=== PATIENT | female | born 1940 | race Caucasian/White ===

== ENCOUNTER 2017-03-23 11:46 | Emergency (ER) | payer MEDICARE ==
[~2017-03-23] VITALS: Ht 162.6 cm; Wt 80.0 kg
[~2017-03-23 11:46] MED LIST: AMITRIPTYLIN25 MG PO; AMITRIPTYLIN50 MG PO; AMLODIPINE PO; AMOXICILLIN875 MG OR; ASPIRIN EC81 MG PO; AVELOX400 MG PO; BACTRIM DS1 TAB PO; BAYER LOW81 MG OR; BL ADULT ASA81 MG PO; CARVEDILOL12.5 MG PO; CARVEDILOL3.125 MG PO; CIPRO500 MG OR; CIPROFLOXACN500 MG PO; CLONIDINE0.1 MG PO; DIGOXIN0.25 MG OR; DONEPEZIL5 MG PO; DULERA1 AE1 IN; DUONEB IN; ELAVIL25 MG OR; FLAGYL500 MG OR; IMODIUM2 MG PO; INDOCIN SR75 MG OR; K-DUR/KLOR-CON20 MEQ PO; LASIX 20 MG20 MG/TAB PO; LASIX40 MG OR; LIPITOR20 MG OR; LISINOPRIL20 MG PO; LORTAB 5 PO; LORTAB 5/3255 MG PO; LORTAB/VICODIN1 TAB OR; LORTAB5 OR; LORTAB5 PO; LOSARTAN POT50 MG PO; MEDDOSEPAK OR; METOPROL TAR25 MG OR; METOPROL TAR50 MG OR; METOPROLOL50 MG OR; METRONIDAZOL500 MG PO; MUCINEX600 MG OR; NEXIUM40 M1 OR; NITROFURANTN100 MG PO; NITROFURANTO100 MG PO; NYAMYC100000 MG PO; OMEPRAZOLE20 MG PO; OXYBUTYNIN5 M1 PO; PENICILLN VK500 MG PO; PEPCID20 MG OR; PLAVIX75 MG PO; PREDNISONE10 MG PO; PRILOSEC20 MG/CAP PO; PROZAC20 MG PO; ROBITUSSIN AC10 ML PO; SIMVASTATIN40 MG PO; SYMBICORT1 AE1 IN; TYLENOL325 MG OR; ULTRAM50 M1 OR; VERAPAMIL80 MG OR; ZESTRIL20 MG OR; ZPAK PO; [UNRECOGNIZED DRUG - OTHER] PO
[2017-03-23 12:57] LABS: HEMATOCRIT 36.6 % (37.0-47.0); HEMOGLOBIN 12.6 g/dl (12.0-16.0); IMMATURE GRANULOCYTES 0.5 % (0.0-1.0); MEAN CELL VOLUME 91.5 fL CALC (80.0-100.0); MEAN CORPUSCULAR HGB 31.5 pG CALC (26.0-32.0); MEAN CORPUSCULAR HGB CONC 34.4 g/L CALC (32.0-36.0); NEUT# 5.67 thou/uL (2.00-7.15); RED CELL DISTRI WIDTH 12.7 % (11.5-15.5)
[2017-03-23 13:00] LABS: ALBUMIN 4.3 g/dL (3.2-5.0); ALKALINE PHOSPHATASE 75 u/l (38-126); ANION GAP 18 (6-22 (CALC)); BILIRUBIN, TOTAL 0.5 mg/dL (0.0-1.4); BUN 8 mg/dL (8-23); BUN/CREATININE RATIO 7 (12-20 (CALC)); CALCIUM 9.6 mg/dL (8.4-10.2); CARBON DIOXIDE 19 mmol/l (22-30); CHLORIDE 97 mmol/l (95-108); CREATININE 1.1 mg/dL (0.5-1.0); GFR 48 ML/MIN (>=60 (CALC)); GFR FOR AFR.AMER. 58 ML/MIN (>=60 (CALC)); GLUCOSE 102 mg/dL (82-115); POTASSIUM 4.1 mmol/l (3.5-5.1); SGOT/AST 22 u/l (9-36); SGPT/ALT 22 u/l (11-66); SODIUM 130 mmol/l (137-146); TOTAL PROTEIN 7.6 g/dL (6.3-8.2)
[2017-03-23] MEDS ORDERED: MEDDOSEPAK PO (14:05)
[2017-03-23] MEDS ORDERED: ZPAK PO (14:05)
[2017-03-23 14:08] VITALS: BP 153/79
== END 2017-03-23 14:19 | disposition home or self-care (01) ==
LOC: ED 11:46
PROVIDERS: Emergency Medicine
DX: J44.1 Chronic obstructive pulmonary disease with (acute) exacerbation (principal); R06.02 Shortness of breath; I10 Essential (primary) hypertension; R05 Cough

== ENCOUNTER 2017-05-20 09:51 | Emergency (ER) | payer MEDICARE ==
[~2017-05-20] VITALS: Ht 162.6 cm; Wt 87.7 kg
[~2017-05-20 09:51] MED LIST changes: -ASPIRIN EC81 MG PO; +BAYER ASPIRIN E81 MG PO; +MEDDOSEPAK PO
[2017-05-20] MEDS ORDERED: WELLBUTRIN SR150 MG PO (10:18)
[2017-05-20] MEDS ORDERED: CARVEDILOL12.5 MG PO (10:19)
[2017-05-20] MEDS ORDERED: COLACE100 MG PO (10:19)
[2017-05-20] MEDS ORDERED: APAP/HYDRO325 MG/10 PO (10:37)
[2017-05-20] MEDS ORDERED: ULTRAM50 M1 PO (11:10)
[2017-05-20 11:30] VITALS: BP 140/84
== END 2017-05-20 11:30 | disposition home or self-care (01) ==
LOC: ED 09:51
DX: S40.012A Contusion of left shoulder, initial encounter (principal); I10 Essential (primary) hypertension; J44.9 Chronic obstructive pulmonary disease, unspecified; E78.5 Hyperlipidemia, unspecified; M19.90 Unspecified osteoarthritis, unspecified site; W01.0XXA Fall on same level from slipping, tripping and stumbling without subsequent striking against object, initial encounter; Y92.002 Bathroom of unspecified non-institutional (private) residence as the place of occurrence of the external cause

== ENCOUNTER → 2017-12-14 | Outpatient (REF) ==
[~2017-12-14] MED LIST changes: +APAP/HYDRO325 MG/10 PO; +COLACE100 MG PO; +ULTRAM50 M1 PO; +WELLBUTRIN SR150 MG PO
== END | disposition home or self-care (01) | DRG 696 ==
LOC: LABSPEC 12:10
PROVIDERS: ATTEND Nurse Practitioner Adult Health
DX: R30.0 Dysuria (principal)

== ENCOUNTER 2017-12-24 15:30 | Emergency (ER) | payer MEDICARE ==
[~2017-12-24] VITALS: Ht 162.6 cm; Wt 100.0 kg
[2017-12-24 16:34] LABS: HEMATOCRIT 36.6 % (37.0-47.0); HEMOGLOBIN 12.3 g/dl (12.0-16.0); IMMATURE GRANULOCYTES 0.3 % (0.0-5.0); MEAN CELL VOLUME 88.8 fL CALC (80.0-100.0); MEAN CORPUSCULAR HGB 29.9 pG CALC (26.0-32.0); MEAN CORPUSCULAR HGB CONC 33.6 g/L CALC (32.0-36.0); NEUT# 4.19 thou/uL (2.00-7.15); RED BLOOD COUNT 4.12 mill/uL (4.20-5.60); RED CELL DISTRI WIDTH 13.1 % (11.5-15.5)
[2017-12-24 16:39] VITALS: BP 171/82
[2017-12-24 17:07] LABS: CREATININE 1.1 mg/dL (0.5-1.0); POTASSIUM 4.9 mmol/l (3.5-5.1)
== END 2017-12-24 20:01 | disposition home or self-care (01) ==
LOC: ED 15:30
PROVIDERS: Family Medicine
DX: S20.212A Contusion of left front wall of thorax, initial encounter (principal); S51.811A Laceration without foreign body of right forearm, initial encounter; S81.812A Laceration without foreign body, left lower leg, initial encounter; I10 Essential (primary) hypertension; J44.9 Chronic obstructive pulmonary disease, unspecified; E78.5 Hyperlipidemia, unspecified; M19.90 Unspecified osteoarthritis, unspecified site; W10.9XXA Fall (on) (from) unspecified stairs and steps, initial encounter; Y92.007 Garden or yard of unspecified non-institutional (private) residence as the place of occurrence of the external cause; Z95.1 Presence of aortocoronary bypass graft
CPT/HCPCS: Q9967

== ENCOUNTER 2020-10-04 07:35 | Day surgery (SDC) | payer MEDICARE ==
[~2020-10-04] VITALS: Ht 162.6 cm; Wt 73.5 kg
[~2020-10-04 07:35] MED LIST changes: +ACYCLOVIR200 MG PO; +ALBUTEROL SUL0.083 % IN; +AMOX/K CLAV875 M1 PO; +ARICEPT10 MG PO; +ASPIRIN81 MG PO; +COREG6.25 MG PO; +DITROPAN5 MG/TA1 PO; +ESCITALOPRAM OX10 MG PO; +FLORASTOR250 M1 PO; +HYDROCODONE/ACE1 TAB PO; +NAMENDA10 MG PO; +PROAIR HFA108 MCG/AC IN; +SIMVASTATIN20 MG PO; +VENTOLIN HFA IN; +WELLBUTRIN XL300 MG PO; +ZOFRAN4 MG/TAB PO
[2020-10-04 09:55] VITALS: BP 151/70
--- NOTE | 2020-10-04 12:33 | NUR ---
PER PHYSICIAN, PATIENT NOTIFIED OF FINDINGS AND RECOMMENDATIONS WRITTEN PER COLONOSCOPY REPORT. PATIENT AGREED WITH INFORMATION GIVEN, STATES DOING WELL, AT HOME RESTING, VERBALIZED NO CONCERNS AT TIME OF CALL. REPORT FORWARDED TO PRIMARY CARE PROVIDER FOR CONTINUITY OF CARE.
== END 2020-10-04 09:46 | disposition home or self-care (01) ==
LOC: ENDO 07:35 → PO 09:25 → ENDO 09:46 → ORM 11:00 → PO 11:15 → ORM 11:15
PROVIDERS: ATTEND Surgery
PROC: 0DJD8ZZ Inspection of Lower Intestinal Tract, Via Natural or Artificial Opening Endoscopic (ICD-10-PCS; principal; 2020-10-04)
PROC: 0DJ08ZZ Inspection of Upper Intestinal Tract, Via Natural or Artificial Opening Endoscopic (ICD-10-PCS; 2020-10-04)
DX: D64.9 Anemia, unspecified (principal); K64.8 Other hemorrhoids; K44.9 Diaphragmatic hernia without obstruction or gangrene; I10 Essential (primary) hypertension; E78.00 Pure hypercholesterolemia, unspecified; Z95.1 Presence of aortocoronary bypass graft

== ENCOUNTER 2021-03-27 14:38 | Observation (INO) | payer MEDICARE ==
[~2021-03-27] VITALS: Ht 162.6 cm; Wt 74.0 kg
[2021-03-27 17:08] LABS: ALBUMIN 3.9 g/dL (3.2-5.0); BILIRUBIN, TOTAL 0.4 mg/dL (0.0-1.4); CREATININE 1.3 mg/dL (0.5-1.0); POTASSIUM 4.4 mmol/l (3.5-5.1); TOTAL PROTEIN 6.8 g/dL (6.3-8.2)
[2021-03-27 17:27] LABS: URINE BILIRUBIN - DIPSTICK NEGATIVE (NEGATIVE); URINE BLOOD DIPSTICK SMALL (NEGATIVE); URINE COLOR YELLOW; URINE GLUCOSE - DIPSTICK NEGATIVE (NEGATIVE); URINE KETONE NEGATIVE (NEGATIVE); URINE LEUK ESTERASE NEGATIVE (NEGATIVE); URINE PROTEIN - DIPSTICK TRACE mg/dL (NEG-TRACE); URINE UROBILINOGEN - DIPSTICK 0.2 E.U./dL (0.2)
[2021-03-27 17:34] LABS: URINE NITRITE - DIPSTICK NEGATIVE (Negative); URINE SQUAMOUS EPITHELIAL CELL FEW EPI/hpf (0-FEW); URINE WBC 0-2 WBC/hpf (0-5)
[2021-03-27 17:49] LABS: HEMOGLOBIN 10.6 g/dl (12.0-16.0); IMMATURE GRANULOCYTES 0.3 % (0.0-5.0); MEAN CELL VOLUME 97.6 fL CALC (80.0-100.0); MEAN CORPUSCULAR HGB 31.4 pG CALC (26.0-32.0); MEAN CORPUSCULAR HGB CONC 32.1 g/dL CAL (32.0-36.0); NEUT# 2.31 thou/uL (2.00-7.15); RED BLOOD COUNT 3.38 mill/uL (4.20-5.60); RED CELL DISTRI WIDTH 12.6 % (11.5-15.5)
[2021-03-27 21:03] LABS: C-REACTIVE PROTEIN 0.6 mg/dL (0-0.9); CHOLESTEROL HDL RATIO 2.9 (<4.4 (CALC))
[2021-03-27 21:30] VITALS: BP 141/69
[2021-03-28] VITALS: BP 135/69
[2021-03-28 04:00] VITALS: BP 144/68
[2021-03-28 05:54] LABS: HEMATOCRIT 34.8 % (37.0-47.0); HEMOGLOBIN 11.7 g/dl (12.0-16.0); MEAN CELL VOLUME 96.1 fL CALC (80.0-100.0); MEAN CORPUSCULAR HGB 32.3 pG CALC (26.0-32.0); MEAN CORPUSCULAR HGB CONC 33.6 g/dL CAL (32.0-36.0); RED BLOOD COUNT 3.62 mill/uL (4.20-5.60); RED CELL DISTRI WIDTH 12.5 % (11.5-15.5)
[2021-03-28 06:03] LABS: CREATININE 1.2 mg/dL (0.5-1.0); MAGNESIUM 1.7 mg/dL (1.6-2.3); POTASSIUM 4.5 mmol/l (3.5-5.1)
[2021-03-28 08:06] LABS: CHOLESTEROL HDL RATIO 2.6 (<4.4 (CALC))
[2021-03-28 10:46] VITALS: BP 147/71
[2021-03-28] MEDS ORDERED: MEMANTINE HYDRO10 MG PO (11:55)
[2021-03-28] MEDS ORDERED: OMEPRAZOLE20 MG PO (11:56)
[2021-03-28] MEDS ORDERED: FERROUS SULF325 M2 PO (11:57)
[2021-03-28] MEDS ORDERED: COREG12.5 MG PO (11:57)
[2021-03-28] MEDS ORDERED: MECLIZINE25 MG PO (11:58)
[2021-03-28 16:00] VITALS: BP 138/67
[2021-03-28 19:00] VITALS: BP 130/72
[2021-03-29] VITALS: BP 134/71
[2021-03-29 04:00] VITALS: BP 128/74
[2021-03-29 06:10] LABS: HEMATOCRIT 35.5 % (37.0-47.0); HEMOGLOBIN 11.8 g/dl (12.0-16.0); MEAN CELL VOLUME 95.9 fL CALC (80.0-100.0); MEAN CORPUSCULAR HGB 31.9 pG CALC (26.0-32.0); MEAN CORPUSCULAR HGB CONC 33.2 g/dL CAL (32.0-36.0); RED BLOOD COUNT 3.7 mill/uL (4.20-5.60); RED CELL DISTRI WIDTH 12.6 % (11.5-15.5)
[2021-03-29 06:26] LABS: CREATININE 1.4 mg/dL (0.5-1.0); MAGNESIUM 1.8 mg/dL (1.6-2.3); POTASSIUM 4.3 mmol/l (3.5-5.1)
[2021-03-29 07:23] VITALS: BP 146/68
[2021-03-29 08:29] VITALS: BP 153/65
[2021-03-29 12:20] VITALS: BP 148/68
== END 2021-03-29 16:01 | disposition home or self-care (01) ==
LOC: ED 14:38 → ED-I 19:25 → ED 19:46 → MS2 19:47
PROVIDERS: Family Medicine; Nurse Practitioner; ADMIT Hospitalist; ATTEND Hospitalist
DX: G45.9 Transient cerebral ischemic attack, unspecified (principal); U07.1 COVID-19; E87.1 Hypo-osmolality and hyponatremia; I12.9 Hypertensive chronic kidney disease with stage 1 through stage 4 chronic kidney disease, or unspecified chronic kidney disease; N18.30 Chronic kidney disease, stage 3 unspecified; J43.9 Emphysema, unspecified; I25.10 Atherosclerotic heart disease of native coronary artery without angina pectoris; E78.5 Hyperlipidemia, unspecified; K21.9 Gastro-esophageal reflux disease without esophagitis; M25.532 Pain in left wrist; M79.642 Pain in left hand; M25.521 Pain in right elbow; M54.2 Cervicalgia; F03.90 Unspecified dementia, unspecified severity, without behavioral disturbance, psychotic disturbance, mood disturbance, and anxiety; Z91.81 History of falling; Z95.1 Presence of aortocoronary bypass graft; Z87.891 Personal history of nicotine dependence
CPT/HCPCS: G0378

== ENCOUNTER 2021-06-09 19:31 | Inpatient (IN) | payer MEDICARE ==
[~2021-06-09] VITALS: Ht 162.6 cm; Wt 68.0 kg
[2021-06-09] VITALS (7 sets, daily range): BP systolic 158–179; BP diastolic 82–92
[~2021-06-09 19:31] MED LIST changes: +BUPROPN HCL300 MG PO; +COREG12.5 MG PO; +FERROUS SULF325 M2 PO; +MECLIZINE25 MG PO; +MEMANTINE HYDRO10 MG PO; -WELLBUTRIN XL300 MG PO
--- NOTE | 2021-06-09 19:32 | NUR ---
PT ARRIVED VIA EMS, IN ROOM ON MONITOR, PROVIDER AWARE.
[2021-06-09 20:32] LABS: HEMATOCRIT 31.1 % (37.0-47.0); HEMOGLOBIN 10.5 g/dl (12.0-16.0); IMMATURE GRANULOCYTES 0.8 % (0.0-5.0); MEAN CELL VOLUME 96.9 fL CALC (80.0-100.0); MEAN CORPUSCULAR HGB 32.7 pG CALC (26.0-32.0); MEAN CORPUSCULAR HGB CONC 33.8 g/dL CAL (32.0-36.0); NEUT# 11.46 thou/uL (2.00-7.15); RED BLOOD COUNT 3.21 mill/uL (4.20-5.60); RED CELL DISTRI WIDTH 13.2 % (11.5-15.5)
[2021-06-09 20:40] LABS: ALBUMIN 3.7 g/dL (3.2-5.0); CREATININE 1.2 mg/dL (0.5-1.0); POTASSIUM 3.6 mmol/l (3.5-5.1)
[2021-06-09 20:49] LABS: BILIRUBIN, TOTAL 1.2 mg/dL (0.0-1.4)
--- NOTE | 2021-06-09 22:08 | NUR ---
PT BACK FROM CT, PUREWICK IN PLACE. CALL LIGHT IN REACH.
--- NOTE | 2021-06-09 22:45 | NUR ---
BEDSIDE REPORT RECEIVED IN ER. PT RESTIN COMFORTALY ON STRETCHER, ER NURSE PERFORMING EKG.
--- NOTE | 2021-06-10 | NUR ---
MARTELL BROUGHT ONTO FLOOR BY WRITTER VIA STRETCHER, TRANSFERREED TO BED WITH ASSISST X2.
--- NOTE | 2021-06-10 | NUR ---
ASSESMENT COMPLETED AT THIS TIME.
--- NOTE | 2021-06-10 01:00 | NUR ---
PATIENT UP AND WALKING TO THE BATHROOM.
--- NOTE | 2021-06-10 02:38 | NUR ---
PATIENT FINALLY SLEEPING SOUNDLY, REPLACED TELEMETRY, READING SR 92. CALL LIGHT WITHIN REACH.
[2021-06-10 03:46] VITALS: BP 138/66
--- NOTE | 2021-06-10 05:00 | NUR ---
PATIENT REFUSING TO KEEP TELEMETRY ON.
--- NOTE | 2021-06-10 05:30 | NUR ---
KYAW ATTEMPTED TO REPLACE TELEMETRY ON PATIENT. PT STATED SHE DID NOT WANT THAT BACK ON HER AND TO "GET AWAY FROM HER"
[2021-06-10 05:50] LABS: HEMATOCRIT 34.9 % (37.0-47.0); HEMOGLOBIN 11.7 g/dl (12.0-16.0); MEAN CELL VOLUME 96.4 fL CALC (80.0-100.0); MEAN CORPUSCULAR HGB 32.3 pG CALC (26.0-32.0); MEAN CORPUSCULAR HGB CONC 33.5 g/dL CAL (32.0-36.0); RED BLOOD COUNT 3.62 mill/uL (4.20-5.60)
[2021-06-10 06:07] LABS: CREATININE 1.2 mg/dL (0.5-1.0); MAGNESIUM 1.9 mg/dL (1.6-2.3); POTASSIUM 3.6 mmol/l (3.5-5.1)
[2021-06-10 07:36] VITALS: BP 138/63
--- NOTE | 2021-06-10 07:36 | NUR ---
PT SLEEPING IN SEMI FOWLERS POSITION. AWAKENS TO SPEECH. PT IS A/OX2 WITH SOME CONFUSION. ASSESSMENT AND VITALS COMPLETED. RESPIRATIONS EVEN AND UNLABORED ON ROOM AIR. LUNG SOUNDS CLEAR. HEART RHYTHM NORMAL WITH TELE IN PLACE. BOWEL SOUNDS ACTIVE. #20G EMS RW FLUSHED, SITE PATENT. SKIN INTACT. PT DENIES OF ANY PAINS. CONTACT PRECAUTIONS IN PLACE FOR POSSIBLE BED BUG INFESTATION, NONE VISIBLE. PT DENIES OF ANY ADDITIONAL NEEDS. ALL SAFTEY PRECAUTIONS ARE IN PLACE WITH CALL LIGHT IN REACH.
--- NOTE | 2021-06-10 07:38 | NUR ---
Patient is screened for intervention of physical medicine service and no needs are identified at this time
[2021-06-10 08:49] LABS: URINE BILIRUBIN - DIPSTICK NEGATIVE (NEGATIVE); URINE BLOOD DIPSTICK SMALL (NEGATIVE); URINE COLOR YELLOW; URINE GLUCOSE - DIPSTICK NEGATIVE (NEGATIVE); URINE KETONE TRACE mg/dL (NEGATIVE); URINE LEUK ESTERASE NEGATIVE (NEGATIVE); URINE PROTEIN - DIPSTICK 30 mg/dL (NEG-TRACE); URINE SPECIFIC GRAVITY 1.015
[2021-06-10 09:06] LABS: URINE NITRITE - DIPSTICK NEGATIVE (Negative); URINE RBC 0-2 RBC/hpf (0-5); URINE SQUAMOUS EPITHELIAL CELL FEW EPI/hpf (0-FEW)
--- NOTE | 2021-06-10 10:00 | NUR ---
DR CRABTREE AT BEDSIDE
[2021-06-10 10:22] VITALS: BP 133/67
--- NOTE | 2021-06-10 12:10 | NUR ---
PT SLEEPING IN LOW FOLWERS POSITION. RESPIRATIONS EVEN AND UNLABORED ON ROOM AIR. #20G RW REMAINS IN PLACE. TELE MONITORING IN PLACE. NO SIGNS OF ANY PAINS OR DISCOMFORTS. ALL SAFTEY PRECAUTIONS IN PLACE WITH CALL LIGHT IN REACH.
[2021-06-10 15:12] VITALS: BP 142/72
--- NOTE | 2021-06-10 16:05 | NUR ---
PT RESTING IN SEMI FOWLERS POSITION. PT ASSISTED TO BATHRROOM AND BACK TO BED. STEADY GAIT NOTED. #20G RW REMAINS IN PLACE. TELE MONITORING IN PLACE. PT DENIES OF ANY NEEDS. ALL SAFTEY PRECAUTIONS IN PLACE WITH CALL LIGHT IN REACH
--- NOTE | 2021-06-10 18:50 | NUR ---
RECEIVED REPORT FROM JANINA HEARN.
[2021-06-10 19:11] VITALS: BP 124/58
--- NOTE | 2021-06-10 20:00 | NUR ---
PT SITTING IN BED; A&O X2. EVEN AND UNLABORED RESPIRATIONS; DIMINISHED LUNG SOUNDS UPON AUSCULTATION. TELEMETRY IN PLACE. ACTIVE BOWEL SOUNDS X4 QUADRANTS. IV SITE HEALTHY AND PATENT. NO DISTRESS NOTED. PT DENIES PAIN AT THE MOMENT. PT ASSISTED TO RESTOOM, PT BACK IN BED. BED ALARM AND SAFETY PRECAUTIONS IN PLACE. CALL LIGHT WITHIN REACH.
--- NOTE | 2021-06-10 20:25 | NUR ---
PT C/O HEADACHE PAIN LEVEL 8/10; ADMINISTERED PAIN MEDICATION PER EMAR. BED ALARM AND SAFETY PRECAUTIONS IN PLACE.
[2021-06-11] VITALS (7 sets, daily range): BP systolic 112–151; BP diastolic 57–92
--- NOTE | 2021-06-11 00:45 | NUR ---
PT ASSISTED TO RESTROOM, PT BACK IN BED. ADMINISTERED SCHEDULED MEDICATION. BED ALARM AND SAFETY PRECAUTIONS IN PLACE. CALL LIGHT WITHIN REACH.
--- NOTE | 2021-06-11 04:00 | NUR ---
PT SLEEPING. NO DISTRESS OR PAIN NOTED. BED ALARM AND SAFETY PRECAUTIONS IN PLACE. CALL LIGHT WITHIN REACH.
[2021-06-11 05:46] LABS: HEMATOCRIT 33.7 % (37.0-47.0); HEMOGLOBIN 11.5 g/dl (12.0-16.0); MEAN CELL VOLUME 95.7 fL CALC (80.0-100.0); MEAN CORPUSCULAR HGB 32.7 pG CALC (26.0-32.0); MEAN CORPUSCULAR HGB CONC 34.1 g/dL CAL (32.0-36.0); RED BLOOD COUNT 3.52 mill/uL (4.20-5.60); RED CELL DISTRI WIDTH 13.2 % (11.5-15.5)
[2021-06-11 06:18] LABS: CREATININE 1.6 mg/dL (0.5-1.0); MAGNESIUM 2.1 mg/dL (1.6-2.3)
[2021-06-11 06:20] LABS: POTASSIUM 3.8 mmol/l (3.5-5.1)
--- NOTE | 2021-06-11 07:00 | NUR ---
RECIEVED REPORT FROM JANINA PURI
--- NOTE | 2021-06-11 08:10 | NUR ---
PT RESTING IN SEMI FOWLERS POSITION. PT A/OX3. ASSESSMENT COMPLETED. RESPIRATIONS EVEN AND UNLABORED. LUNG SOUNDS CLEAR. HEART RHYTHM NORMAL WITH TELE IN PLACE. BOWEL SOUNDS ACTIVE. #22G LAC FLUSHED, SITE PATENT. SKIN INTACT. PT C/O OF 6/10 HEAD ACH, TYLENOL TO BE GIVEN. PT DENIES OF ANY ADDITIONAL NEEDS. ALL SAFTEY PRECAUTIONS IN PLACE WITH CALL LIGHT IN REACH
--- NOTE | 2021-06-11 08:10 | NUR ---
PT RESTING IN SEMI FOWLERS POSITION. PT A/OX2. ASSESSMENT COMPLETED. RESPIRATIONS EVEN AND UNLABORED. LUNG SOUNDS CLEAR. HEART RHYTHM NORMAL WITH TELE IN PLACE. BOWEL SOUNDS ACTIVE. #22G LAC FLUSHED, SITE PATENT. SKIN INTACT. PT C/O OF 6/10 HEAD ACH, TYLENOL TO BE GIVEN. PT DENIES OF ANY ADDITIONAL NEEDS. ALL SAFTEY PRECAUTIONS IN PLACE WITH CALL LIGHT IN REACH WITH BED ALARM ACTIVE
--- NOTE | 2021-06-11 11:00 | NUR ---
CRITICAL PROCAL OF 0.448 FROM [facility] IN LAB
--- NOTE | 2021-06-11 11:45 | NUR ---
SPEECH NOTE: The patient had screening request received today. The patient has conditions reported in medical record including: CABG, COPD exacerbation, GERD, Dementia, GI Bleed, 06-09-21 CT chest per MD reports scattered multi-focal infiltrates bilaterally and marked pulmonary emphysema. 06-11-21 CXR per MD reports of modest improvement in the congestive heart failure. Nurse aide today reports to the INFORMATION TECHNOLOGY ARCHITECT of the patient having coughing in general today, not specific to meals. The patient has some missing dentition. The patient denies having cough and choke with meals. She denies that foods or medication get stuck in her throat. She does report that she feels increased retention of secretions in her throat. The patient denies having trouble swallowing. Based on the available information, the patient would benefit from a Clinical Bedside Swallowing Evaluation at discretion of MD and medical team.
--- NOTE | 2021-06-11 12:35 | NUR ---
PT SITTING UP IN RECYLINER WITH GRANDDAUGHTER AT BEDSIDE. RESPIRATIONS EVEN AND UNLABORED ON ROOM AIR. #22G LAC INFUSING WITH IVF PER ORDER, SITE PATENT. TELE MONITORING IN PLACE. SPOKE WITH GRANDDAUGHTER OF CARE. CM CONSULTED. PT DENIES OF ANY ADDITIONAL NEEDS. ALL SAFTEY PRECAUTIONS IN PLACE WITH CALL LIGHT IN REACH
--- NOTE | 2021-06-11 13:14 | NUR ---
Pt seen this am for treatment. She was OOB in chair, had breakfast and ADL in BR. FOOT SETTER reported walking pt with 1 assist and IV pole. She coughed off and on during treatment but was without production of sputum seen. AROM ex performed to BLE in recline position and 90/90 position. Ex included heelslide, hip abd/add, LAQ, marching and active DF/PF. Pt ambulated with RW in room x 30' and the 2 x 15' with CGA and verbal cues to stand tall/ Pt BP 124/64 to 119/57, HR 70-76, 02sat 96 to 97%. Pt was left in chair with call quevedo and phone in reach, legs elevated by techs after chest x-ray was done. Time spent with pt 45 min A- Pt gait improved requiring decreased assist. Pt was able to stand from bathroom toilet using walker. [facility] ECF or HH P- Will continue to follow for increase independence in mobility.
--- NOTE | 2021-06-11 15:43 | NUR ---
PT ASSISTED TO BATHROOM AND BACK INTO BED. RESPIRATIONS EVEN AND UNLABORED ON ROOM AIR. RESPIRATIONS EVEN AND UNLABORED ON ROOM AIR. #22G LAC REMAINS IN PLACE. TELE MONITORING IN PLACE. PT DENIES OF ANY ADDITIONAL NEEDS. ALL SAFTEY PRECAUTIONS ARE IN PLACE WITH CALL LIGHT IN REACH.
--- NOTE | 2021-06-11 19:00 | NUR ---
RECEIVED REPORT FROM JANINA HEARN.
--- NOTE | 2021-06-11 20:10 | NUR ---
PT IN BED; A&O X2. EVEN AND UNLABORED RESPIRATIONS; CLEAR LUNG SOUNDS UPON AUSCULTATION. TELEMETRY IN PLACE. ACTIVE BOWEL SOUNDS X4 QUADRANTS. IV SITE HEALTHY AND PATENT. PT C/O HEADACHE LEVEL 5/10; ADMINISTERED PAIN MED PER EMAR. SAFETY PRECAUTIONS IN PLACE WITH CALL LIGHT IN REACH.
--- NOTE | 2021-06-12 00:10 | NUR ---
PT ASSISTED TO BSC, PT BACK TO BED. SAFETY PRECAUTIONS IN PLACE. CALL LIGHT WITHIN REACH.
[2021-06-12 03:43] VITALS: BP 159/71
--- NOTE | 2021-06-12 04:10 | NUR ---
PT SLEEPING. NO SIGNS OF DISTRESS OR PAIN NOTED. TELEMETRY AND SAFETY PRECAUTIONS IN PLACE. CALL LIGHT WITHIN REACH.
[2021-06-12 05:57] LABS: HEMATOCRIT 35.8 % (37.0-47.0); HEMOGLOBIN 11.9 g/dl (12.0-16.0); MEAN CELL VOLUME 97.3 fL CALC (80.0-100.0); MEAN CORPUSCULAR HGB 32.3 pG CALC (26.0-32.0); MEAN CORPUSCULAR HGB CONC 33.2 g/dL CAL (32.0-36.0); RED BLOOD COUNT 3.68 mill/uL (4.20-5.60); RED CELL DISTRI WIDTH 13.2 % (11.5-15.5)
[2021-06-12 06:18] LABS: CREATININE 1.3 mg/dL (0.5-1.0); MAGNESIUM 2.2 mg/dL (1.6-2.3)
[2021-06-12 07:32] VITALS: BP 158/87
--- NOTE | 2021-06-12 07:45 | NUR ---
SHIFT CHANGE REPORT, PT AWAKE ALERT AND ORIENTED, C/O SOB AT THIS TIME, ON ASSESSMENT FOUND TO BE SOB, WHEEZING, O2 SAT = 96% ON R/A, REPOSITIONED AND UP TO RECLINER, RESPIRATORY NOTIFIED AND WILL ADDRESS CONDITION, ALL OTHER NEEDS ADDRESSED AT THIS TIME, ASSISTED TO BSC WILL CONTINUE TO MONITOR.
[2021-06-12 10:50] VITALS: BP 153/79
--- NOTE | 2021-06-12 11:56 | NUR ---
Pt seen this am for treatment. She was sitting in recliner, c/o being cold. Pt coughing at times but without sputum produced. Ther ex performed 2 x10 reps including heel slide, hip abd/add, hip IR/ER and ankle DF reclined, sitting LAQ and marching. Pt moved sit to and from stand with CGA and verbal cues for walker, pt had poor safety skills, tends to walk away from walker. Pt ambulated to BR with RW used commode and to sink to wash hand with supervision/CGA. Gait 2 x 50' with RW and supervision, pt with mild dypnea after walking which resolved quickly with rest. BP 119/57, HR 70's, 02sat 96%-95%. Time spent with pt 40 min. A- Pt with poor safety skill, RW recommended. [facility] ECF. P- will continue to follow to increase pt indep and safety.
--- NOTE | 2021-06-12 12:00 | NUR ---
SITTING UP IN RECLINER, NO NEW COMPLAINS
[2021-06-12 15:30] VITALS: BP 140/74
--- NOTE | 2021-06-12 16:00 | NUR ---
STABLE, ALL NEEDS ADDRESSED
--- NOTE | 2021-06-12 19:00 | NUR ---
PATIENT SITTING UP IN CHAIR AT THIS TIME WITH FAMILY MEMEBER AT BEDSIDE. CLEANING ATTENDANT DONE AT THIS TIME SEE INTERVENTIONS. LUNG LEES ARE CLEAR IN UPPER LEES AND DIMINISHED IN MIDDLE AND LOWER LEES. IV SITE FLUSHED AT THIS TIME WITHOUT ISSUE. BOWEL SOUNDS PRESENTS IN ALL FOUR QUADS. TELE MONITOR IN PLACE AT THIS TIME AND BEING MONITORED BY ED. WILL CONTINUE TO MONITOR.
[2021-06-12 19:23] VITALS: BP 166/88
--- NOTE | 2021-06-12 23:33 | NUR ---
PATIENT RESTING IN BED AT THIS TIME DENIES ANY NEEDS. SIDERAILS ARE UP X 2 CALL LIGHT IS WIHTIN REACH. WILL CONTINUE TO MONITOR.
[2021-06-13 00:09] VITALS: BP 151/74
[2021-06-13 04:33] VITALS: BP 160/86
[2021-06-13 05:44] LABS: HEMOGLOBIN 11.7 g/dl (12.0-16.0); MEAN CELL VOLUME 98.6 fL CALC (80.0-100.0); MEAN CORPUSCULAR HGB 32.1 pG CALC (26.0-32.0); MEAN CORPUSCULAR HGB CONC 32.5 g/dL CAL (32.0-36.0); RED BLOOD COUNT 3.65 mill/uL (4.20-5.60); RED CELL DISTRI WIDTH 13.3 % (11.5-15.5)
[2021-06-13 06:08] LABS: CREATININE 1.2 mg/dL (0.5-1.0); POTASSIUM 3.9 mmol/l (3.5-5.1)
--- NOTE | 2021-06-13 08:00 | NUR ---
GOT REORT FROM PLASTERER HELPER NURSE. PATIENT IS AOX3. DENIES ANY SOB, CHEST PAIN, OR DISCOMFORT. PATIENT DENIES ANY QUESTIONS OR CONCERNS AT THIS TIME.
[2021-06-13 09:41] VITALS: BP 165/94
[2021-06-13 11:15] VITALS: BP 154/82
--- NOTE | 2021-06-13 11:41 | NUR ---
Pt sitting on commode on arrival with RW with her. Pt stated she got there by herself and made her bed up some. Pt reminded to have assist with ambulation to prevent falls. Pt stood indep from commode with RW and grab bar. Gait in room with RW 2 x 60' with supervision, pt required verbal cues for safety, she tends to leave walker off to side to sit down instead of turning until legs touch surface. She does not consistently push off surface to stand and reach back for surface when standing. Supine to and from sit with supervision only. Pt able to roll side to side with out bed rail with mild difficulty but no assist. Ther ex performed in sit and supine including heel slide, hip abd/add, SAQ/LAQ, sitting marching and ankle DF. Standing balance with feet together eyes open eye closed x 30 each with no LOB noted. Pt unable to stand tandum, wt shifting performed. Gait belt in use and CGA/min assist with all mobility as needed. BP165/94, HR 85, 02sat 98%. Time spent with pt 60 min. A- Pt moving in room with supervision, no LOB noted using walker, she light touches furniture without assist device. [facility] !5 home with home health. P- Will follow daron d/c, Pt reminded to call nurse for assistance. to stand tandum
[2021-06-13 18:48] VITALS: BP 165/84
--- NOTE | 2021-06-13 19:00 | NUR ---
PATIENT SITTING UP IN CHAIR AT THIS TIME. PATIENT DENIES ANY NEEDS AND DENEIS ANY PAIN. TELLERS SUPERVISOR DONE AT THIS TIME SEE INTERVENTIONS. PATIENT LUNG LEES HAVE FAINT WHEEZES AT THIS TIME AND LOWER LEES ARE DIMINISHED. BOWEL SOUNDS ARE PRESENT AT THIS TIME AND PATIENT STATED THAT HER LAST BM WAS TODAY. PATIENT HAD #22 GAUGE IV PATENT ON LAC AND FLUSHED WITHOUT DIFFICULTY. CALL LIGHT IS WIHTIN REACH PATIENT REMAINS ON TELE AND BEING MONITORED BY ED.
--- NOTE | 2021-06-13 23:16 | NUR ---
PATIENT LAYING IN BED AT THIS TIME DENIES ANY NEEDS STATES PAIN IS A "0" AT THIS TIME. SIDERAILS ARE UP CALL LIGHT WITHIN REACH. PATIENT USING BEAR-HUGGER FOR COMFORT.
[2021-06-13 23:50] VITALS: BP 138/70
--- NOTE | 2021-06-14 03:42 | NUR ---
PATIENT RESTING IN BED AT THIS TIME. DENIES ANY PAIN AT THIS ITME.TELE MONITOR REMAINS IN PLACE AND CALL LIGHT WITHIN REACH. WILL CONTINUE TO MONITOR.
[2021-06-14 04:04] VITALS: BP 145/72
[2021-06-14 05:11] LABS: HEMATOCRIT 32.7 % (37.0-47.0); HEMOGLOBIN 10.8 g/dl (12.0-16.0); MEAN CELL VOLUME 97.3 fL CALC (80.0-100.0); MEAN CORPUSCULAR HGB 32.1 pG CALC (26.0-32.0); RED BLOOD COUNT 3.36 mill/uL (4.20-5.60); RED CELL DISTRI WIDTH 13.1 % (11.5-15.5)
[2021-06-14 05:22] LABS: CREATININE 1.1 mg/dL (0.5-1.0); MAGNESIUM 1.8 mg/dL (1.6-2.3); POTASSIUM 3.5 mmol/l (3.5-5.1)
--- NOTE | 2021-06-14 08:00 | NUR ---
GOT REPORT FROM BREAKFAST BAR ATTENDANT NURSE. PATIENT ASSESSED. AOX3. NO COMPLAINTS AT THIS TIME. PATIENT STATES THAT SHE IS READY TO GO TO REHAB.
[2021-06-14 09:00] VITALS: BP 143/81
[2021-06-14] MEDS ORDERED: VIBRAMYCIN100 M2 PO (10:04)
[2021-06-14] MEDS ORDERED: PREDNISONE10 MG PO (10:04)
--- NOTE | 2021-06-14 11:47 | NUR ---
Discharge instructions given. Patient verbalizes understanding of same. Discharged in stable condition via Wheelchair to *Other with *Other. All belongings sent with pt.
--- NOTE | 2021-06-14 12:51 | NUR ---
Pt seen this am for treatmeNt (845) she was resting in bed, heater in room. She reported not feeling as well as yesterday morning. Manual resisted hip extension, knee extension and SAQ performed 2 x10 reps, active SLE hip abd/add, hip IR/ER with legs straight and ankle DF/PF 2x10 reps. Pt performed 2x 10 reps for LAQ and marching in sitting. Bed mobility was performed with supervision only, modified indep. Supine to sit and transfers with supervision and verbal cueing for safety. Pt tends to grab walker to stand and sit without reaching for chair first, and places walker off to side then turns to sit. Pt standing balance F+. Gait with RW 2 x 60' with supervision and verbal cues to stand tall, posture flexed but with gait pattern. BP 164/80, HR 70 02 sats 93%-95%. Pt left in chair with tray, callbell and phone in reach. Time spent with pt 60 min. A- Pt with some safety issues but no LOB noted with mobility, encourage to continue RW use at home. [facility] 15. P- will follow until d/C.
== END 2021-06-14 11:51 | DRG 194 ==
LOC: ED 19:31 → ED-I 22:00 → ED 22:20 → MS2 22:21
PROVIDERS: Emergency Medicine; Internal Medicine; ADMIT Hospitalist; ATTEND Hospitalist
DX: J18.9 Pneumonia, unspecified organism (principal); E87.1 Hypo-osmolality and hyponatremia; N17.9 Acute kidney failure, unspecified; I13.0 Hypertensive heart and chronic kidney disease with heart failure and stage 1 through stage 4 chronic kidney disease, or unspecified chronic kidney disease; I50.9 Heart failure, unspecified; J43.9 Emphysema, unspecified; N18.30 Chronic kidney disease, stage 3 unspecified; I25.10 Atherosclerotic heart disease of native coronary artery without angina pectoris; E78.5 Hyperlipidemia, unspecified; F03.90 Unspecified dementia, unspecified severity, without behavioral disturbance, psychotic disturbance, mood disturbance, and anxiety; K21.9 Gastro-esophageal reflux disease without esophagitis; Z60.2 Problems related to living alone; Z87.891 Personal history of nicotine dependence; Z95.1 Presence of aortocoronary bypass graft; Z20.822 Contact with and (suspected) exposure to COVID-19

== ENCOUNTER 2021-08-18 16:36 | Observation (INO) | payer MEDICARE ==
[~2021-08-18] VITALS: Ht 162.6 cm; Wt 72.0 kg
[2021-08-18] VITALS (24 sets, daily range): BP systolic 137–210; BP diastolic 71–106
[~2021-08-18 16:36] MED LIST changes: +VIBRAMYCIN100 M2 PO
[2021-08-18 17:07] LABS: HEMATOCRIT 35.4 % (37.0-47.0); IMMATURE GRANULOCYTES 0.6 % (0.0-5.0); MEAN CELL VOLUME 94.7 fL CALC (80.0-100.0); MEAN CORPUSCULAR HGB 32.1 pG CALC (26.0-32.0); MEAN CORPUSCULAR HGB CONC 33.9 g/dL CAL (32.0-36.0); NEUT# 5.16 thou/uL (2.00-7.15); RED BLOOD COUNT 3.74 mill/uL (4.20-5.60); RED CELL DISTRI WIDTH 13.8 % (11.5-15.5)
[2021-08-18 17:22] LABS: ALBUMIN 3.6 g/dL (3.2-5.0); BILIRUBIN, TOTAL 0.8 mg/dL (0.0-1.4); CREATININE 1.4 mg/dL (0.5-1.0); POTASSIUM 3.3 mmol/l (3.5-5.1); TOTAL PROTEIN 6.2 g/dL (6.3-8.2)
[2021-08-18 18:50] LABS: URINE BLOOD DIPSTICK SMALL (NEGATIVE); URINE COLOR YELLOW; URINE GLUCOSE - DIPSTICK NEGATIVE (NEGATIVE); URINE KETONE TRACE mg/dL (NEGATIVE); URINE LEUK ESTERASE NEGATIVE (NEGATIVE); URINE PROTEIN - DIPSTICK >=300 mg/dL (NEG-TRACE); URINE SPECIFIC GRAVITY >=1.030
[2021-08-18 18:51] LABS: URINE BILIRUBIN - DIPSTICK NEGATIVE (NEGATIVE); URINE NITRITE - DIPSTICK NEGATIVE (Negative)
[2021-08-18 18:58] LABS: URINE CASTS RARE lpf (NONE-RARE); URINE WBC 0-2 WBC/hpf (0-5)
[2021-08-19] VITALS (8 sets, daily range): BP systolic 120–184; BP diastolic 67–104
[2021-08-19 05:50] LABS: HEMATOCRIT 35.7 % (37.0-47.0); HEMOGLOBIN 11.6 g/dl (12.0-16.0); MEAN CELL VOLUME 98.1 fL CALC (80.0-100.0); MEAN CORPUSCULAR HGB 31.9 pG CALC (26.0-32.0); MEAN CORPUSCULAR HGB CONC 32.5 g/dL CAL (32.0-36.0); RED BLOOD COUNT 3.64 mill/uL (4.20-5.60); RED CELL DISTRI WIDTH 13.8 % (11.5-15.5)
[2021-08-19 06:16] LABS: CREATININE 1.4 mg/dL (0.5-1.0); MAGNESIUM 1.8 mg/dL (1.6-2.3)
[2021-08-20] VITALS (7 sets, daily range): BP systolic 117–152; BP diastolic 63–104
[2021-08-20 06:39] LABS: HEMATOCRIT 35.1 % (37.0-47.0); HEMOGLOBIN 11.5 g/dl (12.0-16.0); IMMATURE GRANULOCYTES 0.6 % (0.0-5.0); MEAN CELL VOLUME 97.8 fL CALC (80.0-100.0); MEAN CORPUSCULAR HGB CONC 32.8 g/dL CAL (32.0-36.0); NEUT# 6.11 thou/uL (2.00-7.15); RED BLOOD COUNT 3.59 mill/uL (4.20-5.60); RED CELL DISTRI WIDTH 13.9 % (11.5-15.5)
[2021-08-20 07:18] LABS: ALBUMIN 2.9 g/dL (3.2-5.0); CREATININE 1.3 mg/dL (0.5-1.0); POTASSIUM 3.6 mmol/l (3.5-5.1); TOTAL PROTEIN 5.1 g/dL (6.3-8.2)
[2021-08-20 07:22] LABS: BILIRUBIN, TOTAL 0.3 mg/dL (0.0-1.4)
[2021-08-21 04:33] VITALS: BP 124/68
[2021-08-21 06:24] LABS: HEMATOCRIT 36.6 % (37.0-47.0); HEMOGLOBIN 11.9 g/dl (12.0-16.0); IMMATURE GRANULOCYTES 0.3 % (0.0-5.0); MEAN CELL VOLUME 98.9 fL CALC (80.0-100.0); MEAN CORPUSCULAR HGB 32.2 pG CALC (26.0-32.0); MEAN CORPUSCULAR HGB CONC 32.5 g/dL CAL (32.0-36.0); NEUT# 12.29 thou/uL (2.00-7.15); RED BLOOD COUNT 3.7 mill/uL (4.20-5.60); RED CELL DISTRI WIDTH 13.9 % (11.5-15.5)
[2021-08-21 06:56] LABS: ALBUMIN 3.1 g/dL (3.2-5.0); BILIRUBIN, TOTAL 0.3 mg/dL (0.0-1.4); CREATININE 1.4 mg/dL (0.5-1.0); POTASSIUM 4.1 mmol/l (3.5-5.1); TOTAL PROTEIN 5.4 g/dL (6.3-8.2)
[2021-08-21 07:42] VITALS: BP 133/76
[2021-08-21 10:28] VITALS: BP 105/63
[2021-08-21 15:04] VITALS: BP 113/68
[2021-08-21] MEDS ORDERED: MEDDOSEPAK PO (16:07)
[2021-08-21] MEDS ORDERED: ZITHROMAX250 MG PO (16:08)
[2021-08-21] MEDS ORDERED: OMNICEF300 MG PO (16:08)
[2021-08-21 20:05] VITALS: BP 128/70
[2021-08-21 21:48] VITALS: BP 128/70
== END 2021-08-21 20:14 ==
LOC: ED 16:36 → ED-I 21:40 → ED 21:52 → MS2 21:53
PROVIDERS: Family Medicine; Nurse Practitioner; ADMIT Hospitalist; ATTEND Hospitalist
DX: J18.9 Pneumonia, unspecified organism (principal); E87.1 Hypo-osmolality and hyponatremia; E87.6 Hypokalemia; N39.0 Urinary tract infection, site not specified; N17.9 Acute kidney failure, unspecified; J43.9 Emphysema, unspecified; R09.02 Hypoxemia; I12.9 Hypertensive chronic kidney disease with stage 1 through stage 4 chronic kidney disease, or unspecified chronic kidney disease; N18.30 Chronic kidney disease, stage 3 unspecified; I25.10 Atherosclerotic heart disease of native coronary artery without angina pectoris; E78.5 Hyperlipidemia, unspecified; N39.3 Stress incontinence (female) (male); K21.9 Gastro-esophageal reflux disease without esophagitis; G30.9 Alzheimer's disease, unspecified; F02.80 Dementia in other diseases classified elsewhere, unspecified severity, without behavioral disturbance, psychotic disturbance, mood disturbance, and anxiety; Z91.81 History of falling; Z99.81 Dependence on supplemental oxygen; Z20.822 Contact with and (suspected) exposure to COVID-19

== ENCOUNTER 2021-10-02 19:47 | Inpatient (IN) | payer MEDICARE ==
[~2021-10-02] VITALS: Ht 162.6 cm; Wt 57.0 kg
[~2021-10-02 19:47] MED LIST changes: +AMITRIPTYLINE H50 MG PO; -COREG12.5 MG PO; +LEXAPRO20 MG PO; +OMNICEF300 MG PO; +ZITHROMAX250 MG PO
[2021-10-02 20:33] LABS: HEMATOCRIT 35.8 % (37.0-47.0); HEMOGLOBIN 12.1 g/dl (12.0-16.0); MEAN CELL VOLUME 94.2 fL CALC (80.0-100.0); MEAN CORPUSCULAR HGB 31.8 pG CALC (26.0-32.0); MEAN CORPUSCULAR HGB CONC 33.8 g/dL CAL (32.0-36.0); NEUT# 7.42 thou/uL (2.00-7.15); RED BLOOD COUNT 3.8 mill/uL (4.20-5.60); RED CELL DISTRI WIDTH 13.4 % (11.5-15.5)
[2021-10-02 20:34] LABS: URINE BLOOD DIPSTICK SMALL (NEGATIVE); URINE COLOR YELLOW; URINE GLUCOSE - DIPSTICK NEGATIVE (NEGATIVE); URINE KETONE NEGATIVE (NEGATIVE); URINE LEUK ESTERASE NEGATIVE (NEGATIVE); URINE PH 5.5 (4.5-8.0); URINE PROTEIN - DIPSTICK >=300 mg/dL (NEG-TRACE); URINE SPECIFIC GRAVITY >=1.030
[2021-10-02 20:48] LABS: URINE BILIRUBIN - DIPSTICK SMALL (NEGATIVE); URINE NITRITE - DIPSTICK NEGATIVE (Negative)
[2021-10-02 20:49] LABS: URINE SQUAMOUS EPITHELIAL CELL FEW EPI/hpf (0-FEW); URINE WBC 0-2 WBC/hpf (0-5)
[2021-10-02 21:07] LABS: ALBUMIN 3.6 g/dL (3.2-5.0); BILIRUBIN, TOTAL 1.4 mg/dL (0.0-1.4); CREATININE 1.5 mg/dL (0.5-1.0); POTASSIUM 3.6 mmol/l (3.5-5.1); TOTAL PROTEIN 6.2 g/dL (6.3-8.2)
[2021-10-02 21:30] VITALS: BP 157/85
[2021-10-02 21:37] LABS: TSH, 3RD GENERATION 11.5 uIU/mL (0.47 - 4.68)
[2021-10-02 21:45] VITALS: BP 157/89
[2021-10-02 22:00] VITALS: BP 153/86
[2021-10-02 22:15] VITALS: BP 146/90
[2021-10-02 22:41] VITALS: BP 157/94
[2021-10-03] VITALS (7 sets, daily range): BP systolic 142–163; BP diastolic 85–90
[2021-10-03 06:08] LABS: HEMATOCRIT 36.1 % (37.0-47.0); HEMOGLOBIN 12.1 g/dl (12.0-16.0); IMMATURE GRANULOCYTES 0.3 % (0.0-5.0); MEAN CORPUSCULAR HGB 31.8 pG CALC (26.0-32.0); MEAN CORPUSCULAR HGB CONC 33.5 g/dL CAL (32.0-36.0); NEUT# 6.75 thou/uL (2.00-7.15); RED BLOOD COUNT 3.8 mill/uL (4.20-5.60); RED CELL DISTRI WIDTH 13.4 % (11.5-15.5)
[2021-10-03 06:41] LABS: ALBUMIN 3.3 g/dL (3.2-5.0); CREATININE 1.6 mg/dL (0.5-1.0); MAGNESIUM 1.9 mg/dL (1.6-2.3); POTASSIUM 3.7 mmol/l (3.5-5.1)
[2021-10-03 10:10] LABS: BILIRUBIN, TOTAL 1.3 mg/dL (0.0-1.4); TOTAL PROTEIN 5.6 g/dL (6.3-8.2)
[2021-10-03] MEDS ORDERED: [UNRECOGNIZED DRUG - OTHER] PO (14:16)
[2021-10-03] MEDS ORDERED: VITAMIN D1.25 MG PO (14:19)
[2021-10-04] VITALS (7 sets, daily range): BP systolic 137–156; BP diastolic 76–88
[2021-10-04 06:24] LABS: CREATININE 1.5 mg/dL (0.5-1.0); MAGNESIUM 1.9 mg/dL (1.6-2.3); POTASSIUM 3.3 mmol/l (3.5-5.1)
[2021-10-05 04:13] VITALS: BP 129/75
[2021-10-05 04:23] VITALS: BP 129/75
[2021-10-05 04:56] LABS: HEMATOCRIT 34.5 % (37.0-47.0); HEMOGLOBIN 11.1 g/dl (12.0-16.0); IMMATURE GRANULOCYTES 1.4 % (0.0-5.0); MEAN CELL VOLUME 98.6 fL CALC (80.0-100.0); MEAN CORPUSCULAR HGB 31.7 pG CALC (26.0-32.0); MEAN CORPUSCULAR HGB CONC 32.2 g/dL CAL (32.0-36.0); NEUT# 5.71 thou/uL (2.00-7.15); RED BLOOD COUNT 3.5 mill/uL (4.20-5.60); RED CELL DISTRI WIDTH 14.2 % (11.5-15.5)
[2021-10-05 05:29] LABS: CREATININE 1.3 mg/dL (0.5-1.0); POTASSIUM 3.9 mmol/l (3.5-5.1)
[2021-10-05 06:52] VITALS: BP 148/81
[2021-10-05 16:13] VITALS: BP 142/81
[2021-10-05 19:00] VITALS: BP 142/81
[2021-10-06] VITALS (33 sets, daily range): BP systolic 104–166; BP diastolic 72–137
[2021-10-06 05:55] LABS: CREATININE 1.2 mg/dL (0.5-1.0); MAGNESIUM 2.1 mg/dL (1.6-2.3); POTASSIUM 4.4 mmol/l (3.5-5.1)
[2021-10-06 14:27] LABS: HEMATOCRIT 37.2 % (37.0-47.0); HEMOGLOBIN 11.9 g/dl (12.0-16.0); IMMATURE GRANULOCYTES 0.8 % (0.0-5.0); MEAN CELL VOLUME 99.7 fL CALC (80.0-100.0); MEAN CORPUSCULAR HGB 31.9 pG CALC (26.0-32.0); NEUT# 8.86 thou/uL (2.00-7.15); RED BLOOD COUNT 3.73 mill/uL (4.20-5.60); RED CELL DISTRI WIDTH 14.7 % (11.5-15.5)
[2021-10-06 14:45] LABS: ALBUMIN 3.2 g/dL (3.2-5.0); BILIRUBIN, TOTAL 1.7 mg/dL (0.0-1.4); CREATININE 1.4 mg/dL (0.5-1.0); POTASSIUM 4.3 mmol/l (3.5-5.1); TOTAL PROTEIN 5.4 g/dL (6.3-8.2)
[2021-10-06 17:47] LABS: URINE BILIRUBIN - DIPSTICK NEGATIVE (NEGATIVE); URINE BLOOD DIPSTICK MODERATE (NEGATIVE); URINE COLOR YELLOW; URINE GLUCOSE - DIPSTICK NEGATIVE (NEGATIVE); URINE KETONE NEGATIVE (NEGATIVE); URINE LEUK ESTERASE NEGATIVE (NEGATIVE); URINE PROTEIN - DIPSTICK 100 mg/dL (NEG-TRACE); URINE SPECIFIC GRAVITY >=1.030
[2021-10-06 17:55] LABS: URINE NITRITE - DIPSTICK NEGATIVE (Negative)
[2021-10-06 18:07] LABS: URINE SQUAMOUS EPITHELIAL CELL FEW EPI/hpf (0-FEW)
[2021-10-06 23:59] LABS: ALBUMIN 3.2 g/dL (3.2-5.0); BILIRUBIN, TOTAL 1.7 mg/dL (0.0-1.4); CREATININE 1.4 mg/dL (0.5-1.0); POTASSIUM 4.7 mmol/l (3.5-5.1); TOTAL PROTEIN 5.3 g/dL (6.3-8.2)
[2021-10-07] VITALS (103 sets, daily range): BP systolic 105–197; BP diastolic 78–110
[2021-10-07 06:19] LABS: ALBUMIN 2.8 g/dL (3.2-5.0); CREATININE 1.4 mg/dL (0.5-1.0)
[2021-10-07 06:21] LABS: HEMATOCRIT 36.6 % (37.0-47.0); HEMOGLOBIN 11.9 g/dl (12.0-16.0); IMMATURE GRANULOCYTES 0.7 % (0.0-5.0); MEAN CELL VOLUME 98.9 fL CALC (80.0-100.0); MEAN CORPUSCULAR HGB 32.2 pG CALC (26.0-32.0); MEAN CORPUSCULAR HGB CONC 32.5 g/dL CAL (32.0-36.0); NEUT# 12.99 thou/uL (2.00-7.15); RED BLOOD COUNT 3.7 mill/uL (4.20-5.60); RED CELL DISTRI WIDTH 15.1 % (11.5-15.5)
[2021-10-07 06:49] LABS: BILIRUBIN, TOTAL 1.7 mg/dL (0.0-1.4)
[2021-10-08] VITALS (85 sets, daily range): BP systolic 117–175; BP diastolic 67–129
[2021-10-08 05:24] LABS: HEMATOCRIT 38.9 % (37.0-47.0); HEMOGLOBIN 12.6 g/dl (12.0-16.0); IMMATURE GRANULOCYTES 0.6 % (0.0-5.0); MEAN CORPUSCULAR HGB 31.7 pG CALC (26.0-32.0); MEAN CORPUSCULAR HGB CONC 32.4 g/dL CAL (32.0-36.0); NEUT# 19.14 thou/uL (2.00-7.15); RED BLOOD COUNT 3.97 mill/uL (4.20-5.60); RED CELL DISTRI WIDTH 15.5 % (11.5-15.5)
[2021-10-08 05:30] LABS: ALBUMIN 2.7 g/dL (3.2-5.0); BILIRUBIN, TOTAL 1.2 mg/dL (0.0-1.4); CREATININE 1.3 mg/dL (0.5-1.0); MAGNESIUM 1.9 mg/dL (1.6-2.3); POTASSIUM 3.4 mmol/l (3.5-5.1)
[2021-10-08 05:43] LABS: INTERNATIONAL NORMALIZED RATIO 1.3 RATIO (0.7-1.3); PROTHROMBIN TIME 13.2 SECONDS (9.0-12.5)
[2021-10-09] VITALS (96 sets, daily range): BP systolic 119–158; BP diastolic 69–100
[2021-10-09 05:51] LABS: HEMATOCRIT 41.6 % (37.0-47.0); HEMOGLOBIN 13.1 g/dl (12.0-16.0); MEAN CELL VOLUME 99.3 fL CALC (80.0-100.0); MEAN CORPUSCULAR HGB 31.3 pG CALC (26.0-32.0); MEAN CORPUSCULAR HGB CONC 31.5 g/dL CAL (32.0-36.0); RED BLOOD COUNT 4.19 mill/uL (4.20-5.60); RED CELL DISTRI WIDTH 15.8 % (11.5-15.5)
[2021-10-09 06:10] LABS: ALBUMIN 2.7 g/dL (3.2-5.0); BILIRUBIN, TOTAL 1.2 mg/dL (0.0-1.4); CREATININE 1.2 mg/dL (0.5-1.0); MAGNESIUM 2.1 mg/dL (1.6-2.3); POTASSIUM 3.8 mmol/l (3.5-5.1); TOTAL PROTEIN 4.8 g/dL (6.3-8.2)
[2021-10-09 06:22] LABS: URINE BLOOD DIPSTICK LARGE (NEGATIVE); URINE CLARITY SL CLOUDY; URINE COLOR YELLOW; URINE GLUCOSE - DIPSTICK NEGATIVE (NEGATIVE); URINE KETONE TRACE mg/dL (NEGATIVE); URINE LEUK ESTERASE NEGATIVE (Negative); URINE NITRITE - DIPSTICK NEGATIVE (Negative); URINE PH 5.5 (4.5-8.0); URINE PROTEIN - DIPSTICK 100 mg/dL (NEG-TRACE); URINE SPECIFIC GRAVITY >=1.030
[2021-10-09 06:25] LABS: URINE BILIRUBIN - DIPSTICK SMALL (NEGATIVE)
[2021-10-09 06:37] LABS: URINE BACTERIA MODERATE hpf; URINE RBC 50-100 RBC/hpf (0-5); URINE SQUAMOUS EPITHELIAL CELL FEW EPI/hpf (0-FEW); URINE WBC 0-2 WBC/hpf (0-5)
[2021-10-09 17:24] LABS: C-REACTIVE PROTEIN 3.3 mg/dL (0-0.9)
[2021-10-10] VITALS (53 sets, daily range): BP systolic 123–156; BP diastolic 73–98
[2021-10-10 06:35] LABS: HEMATOCRIT 39.7 % (37.0-47.0); HEMOGLOBIN 12.9 g/dl (12.0-16.0); MEAN CORPUSCULAR HGB 31.9 pG CALC (26.0-32.0); MEAN CORPUSCULAR HGB CONC 32.5 g/dL CAL (32.0-36.0); RED BLOOD COUNT 4.05 mill/uL (4.20-5.60); RED CELL DISTRI WIDTH 15.5 % (11.5-15.5)
[2021-10-10 07:19] LABS: ALBUMIN 2.6 g/dL (3.2-5.0); CREATININE 1.4 mg/dL (0.5-1.0); POTASSIUM 3.3 mmol/l (3.5-5.1); TOTAL PROTEIN 4.6 g/dL (6.3-8.2)
[2021-10-11 02:00] VITALS: BP 132/87
[2021-10-11 04:00] VITALS: BP 132/80
[2021-10-11 06:00] VITALS: BP 138/84
[2021-10-11 06:33] LABS: HEMATOCRIT 44.8 % (37.0-47.0); HEMOGLOBIN 14.3 g/dl (12.0-16.0); MEAN CELL VOLUME 97.2 fL CALC (80.0-100.0); MEAN CORPUSCULAR HGB CONC 31.9 g/dL CAL (32.0-36.0); RED BLOOD COUNT 4.61 mill/uL (4.20-5.60); RED CELL DISTRI WIDTH 15.9 % (11.5-15.5)
[2021-10-11 07:02] LABS: BILIRUBIN, TOTAL 1.2 mg/dL (0.0-1.4); CREATININE 1.5 mg/dL (0.5-1.0); MAGNESIUM 2.2 mg/dL (1.6-2.3); POTASSIUM 3.8 mmol/l (3.5-5.1); TOTAL PROTEIN 5.1 g/dL (6.3-8.2)
[2021-10-11 08:00] VITALS: BP 133/87
[2021-10-11 10:00] VITALS: BP 126/84
[2021-10-11 12:00] VITALS: BP 126/83
== END 2021-10-11 14:41 | disposition short-term general hospital (02) | DRG 640 ==
LOC: ED 19:47 → ED-I 21:29 → MS2 21:41 → ED 21:41 → MS2 10-03 11:31 → ICU 10-03 11:31 → MS2 10-03 11:32 → ICU 10-06 16:04 → MS2 10-10 10:40 → ICU 10-10 18:21
PROVIDERS: Family Medicine; Internal Medicine; Internal Medicine Nephrology; Nurse Practitioner; ADMIT Internal Medicine; ATTEND Internal Medicine
DX: E87.1 Hypo-osmolality and hyponatremia (principal); G93.41 Metabolic encephalopathy; I50.21 Acute systolic (congestive) heart failure; N17.9 Acute kidney failure, unspecified; J96.11 Chronic respiratory failure with hypoxia; I13.0 Hypertensive heart and chronic kidney disease with heart failure and stage 1 through stage 4 chronic kidney disease, or unspecified chronic kidney disease; N18.30 Chronic kidney disease, stage 3 unspecified; F03.90 Unspecified dementia, unspecified severity, without behavioral disturbance, psychotic disturbance, mood disturbance, and anxiety; I48.0 Paroxysmal atrial fibrillation; I25.10 Atherosclerotic heart disease of native coronary artery without angina pectoris; E86.9 Volume depletion, unspecified; E87.2 Acidosis; R79.89 Other specified abnormal findings of blood chemistry; R89.7 Abnormal histological findings in specimens from other organs, systems and tissues; E87.6 Hypokalemia; D72.829 Elevated white blood cell count, unspecified; T38.0X5A Adverse effect of glucocorticoids and synthetic analogues, initial encounter; J43.9 Emphysema, unspecified; K21.9 Gastro-esophageal reflux disease without esophagitis; E78.5 Hyperlipidemia, unspecified; Z99.81 Dependence on supplemental oxygen; Z79.899 Other long term (current) drug therapy; R74.8 Abnormal levels of other serum enzymes; Z95.1 Presence of aortocoronary bypass graft; Z87.891 Personal history of nicotine dependence; Z20.822 Contact with and (suspected) exposure to COVID-19
CPT/HCPCS: Q3014

== ENCOUNTER 2021-10-23 15:10 | Inpatient (IN) | payer MEDICARE ==
[~2021-10-23] VITALS: Ht 162.6 cm; Wt 75.0 kg
[2021-10-23] VITALS (36 sets, daily range): BP systolic 113–136; BP diastolic 50–89
[~2021-10-23 15:10] MED LIST changes: +COREG12.5 MG PO; -SIMVASTATIN20 MG PO; +VITAMIN D350000 UNIT PO; +ZOCOR20 M1 PO; +[UNRECOGNIZED DRUG - OTHER] PO
[2021-10-23 15:47] LABS: HEMATOCRIT 39.9 % (37.0-47.0); HEMOGLOBIN 12.5 g/dl (12.0-16.0); IMMATURE GRANULOCYTES 0.9 % (0.0-5.0); MEAN CORPUSCULAR HGB 31.6 pG CALC (26.0-32.0); MEAN CORPUSCULAR HGB CONC 31.3 g/dL CAL (32.0-36.0); NEUT# 21.77 thou/uL (2.00-7.15); RED BLOOD COUNT 3.95 mill/uL (4.20-5.60); RED CELL DISTRI WIDTH 17.7 % (11.5-15.5)
[2021-10-23 16:04] LABS: ALBUMIN 2.7 g/dL (3.2-5.0); CREATININE 1.7 mg/dL (0.5-1.0); POTASSIUM 3.8 mmol/l (3.5-5.1)
[2021-10-23 16:09] LABS: BILIRUBIN, TOTAL 4.2 mg/dL (0.0-1.4)
[2021-10-23 16:55] LABS: URINE BLOOD DIPSTICK TRACE-INTACT (NEGATIVE); URINE GLUCOSE - DIPSTICK NEGATIVE (NEGATIVE); URINE KETONE TRACE mg/dL (NEGATIVE); URINE PH 5.5 (4.5-8.0); URINE PROTEIN - DIPSTICK 100 mg/dL (NEG-TRACE); URINE SPECIFIC GRAVITY >=1.030
[2021-10-23 16:57] LABS: URINE BILIRUBIN - DIPSTICK MODERATE (NEGATIVE); URINE COLOR AMBER; URINE LEUK ESTERASE SMALL (NEGATIVE); URINE NITRITE - DIPSTICK NEGATIVE (Negative)
[2021-10-23 17:05] LABS: URINE WBC 20-50 WBC/hpf (0-5)
[2021-10-23 17:06] LABS: URINE BACTERIA FEW hpf; URINE SQUAMOUS EPITHELIAL CELL FEW EPI/hpf (0-FEW)
[2021-10-24] VITALS (22 sets, daily range): BP systolic 115–159; BP diastolic 58–85
[2021-10-24 06:22] LABS: HEMATOCRIT 40.2 % (37.0-47.0); HEMOGLOBIN 12.9 g/dl (12.0-16.0); IMMATURE GRANULOCYTES 0.8 % (0.0-5.0); MEAN CORPUSCULAR HGB 32.7 pG CALC (26.0-32.0); MEAN CORPUSCULAR HGB CONC 32.1 g/dL CAL (32.0-36.0); NEUT# 21.07 thou/uL (2.00-7.15); RED BLOOD COUNT 3.94 mill/uL (4.20-5.60); RED CELL DISTRI WIDTH 18.2 % (11.5-15.5)
[2021-10-24 06:40] LABS: ALBUMIN 2.4 g/dL (3.2-5.0); BILIRUBIN, TOTAL 3.3 mg/dL (0.0-1.4); CREATININE 1.6 mg/dL (0.5-1.0); MAGNESIUM 1.7 mg/dL (1.6-2.3); POTASSIUM 3.6 mmol/l (3.5-5.1); TOTAL PROTEIN 4.3 g/dL (6.3-8.2)
[2021-10-24 09:50] LABS: TSH, 3RD GENERATION 5.33 uIU/mL (0.47 - 4.68)
[2021-10-24] MEDS ORDERED: OMEPRAZOLE DR40 MG PO (13:56)
[2021-10-24] MEDS ORDERED: DITROPAN XL5 MG PO (13:56)
[2021-10-24] MEDS ORDERED: VAZALORE81 MG PO (13:57)
[2021-10-25] VITALS (7 sets, daily range): BP systolic 150–160; BP diastolic 68–81
[2021-10-26] VITALS (12 sets, daily range): BP systolic 135–165; BP diastolic 83–98
[2021-10-26 05:36] LABS: HEMATOCRIT 43.9 % (37.0-47.0); HEMOGLOBIN 13.5 g/dl (12.0-16.0); MEAN CELL VOLUME 102.6 fL CALC (80.0-100.0); MEAN CORPUSCULAR HGB 31.5 pG CALC (26.0-32.0); MEAN CORPUSCULAR HGB CONC 30.8 g/dL CAL (32.0-36.0); RED BLOOD COUNT 4.28 mill/uL (4.20-5.60); RED CELL DISTRI WIDTH 18.4 % (11.5-15.5)
[2021-10-26 06:05] LABS: ALBUMIN 2.1 g/dL (3.2-5.0); CREATININE 1.6 mg/dL (0.5-1.0); MAGNESIUM 1.9 mg/dL (1.6-2.3); POTASSIUM 3.1 mmol/l (3.5-5.1)
[2021-10-26 06:15] LABS: BILIRUBIN, TOTAL 1.8 mg/dL (0.0-1.4)
[2021-10-27 03:27] VITALS: BP 153/91
[2021-10-27 05:37] LABS: HEMOGLOBIN 13.4 g/dl (12.0-16.0); MEAN CELL VOLUME 101.4 fL CALC (80.0-100.0); MEAN CORPUSCULAR HGB 31.6 pG CALC (26.0-32.0); MEAN CORPUSCULAR HGB CONC 31.2 g/dL CAL (32.0-36.0); RED BLOOD COUNT 4.24 mill/uL (4.20-5.60); RED CELL DISTRI WIDTH 18.9 % (11.5-15.5)
[2021-10-27 06:04] LABS: ALBUMIN 2.5 g/dL (3.2-5.0); ALKALINE PHOSPHATASE 80 u/l (38-126); BILIRUBIN, TOTAL 1.9 mg/dL (0.0-1.4); BUN 62 mg/dL (8-23); BUN/CREATININE RATIO 31 (12-20 (CALC)); CARBON DIOXIDE 19 mmol/l (22-30); CHLORIDE 118 mmol/l (95-108); GFR FOR AFR.AMER. 29 ML/MIN (>=60 (CALC)); GFR OTHER RACES 24 ML/MIN (>=60 (CALC)); MAGNESIUM 1.8 mg/dL (1.6-2.3); SODIUM 150 mmol/l (137-146)
[2021-10-27 06:08] LABS: ANION GAP 17 (6-22 (CALC)); POTASSIUM 4.2 mmol/l (3.5-5.1); SGOT/AST 41 u/l (9-36)
[2021-10-27 06:34] VITALS: BP 139/110
[2021-10-27 11:22] VITALS: BP 110/51
[2021-10-27 16:34] VITALS: BP 132/82
[2021-10-27 18:52] VITALS: BP 116/86
[2021-10-27 23:54] VITALS: BP 133/76
[2021-10-28 03:04] VITALS: BP 145/94
[2021-10-28 06:50] VITALS: BP 139/94
[2021-10-28 11:54] VITALS: BP 139/94
== END 2021-10-28 16:45 | disposition hospice, inpatient (51) | DRG 871 ==
LOC: ED 15:10 → ED-I 18:40 → ED 19:22 → ICU 19:23 → MS2 10-24 18:30 → UNDODEPER 10-24 21:29 → MS2 10-28 16:45
PROVIDERS: Emergency Medicine; ADMIT Internal Medicine; ATTEND Internal Medicine
PROC: 0T9B70Z Drainage of Bladder with Drainage Device, Via Natural or Artificial Opening (ICD-10-PCS; principal; 2021-10-23)
DX: A41.01 Sepsis due to Methicillin susceptible Staphylococcus aureus (principal); J18.9 Pneumonia, unspecified organism; G93.41 Metabolic encephalopathy; N39.0 Urinary tract infection, site not specified; E87.2 Acidosis; N17.9 Acute kidney failure, unspecified; I13.0 Hypertensive heart and chronic kidney disease with heart failure and stage 1 through stage 4 chronic kidney disease, or unspecified chronic kidney disease; I50.22 Chronic systolic (congestive) heart failure; R65.20 Severe sepsis without septic shock; N18.30 Chronic kidney disease, stage 3 unspecified; R09.02 Hypoxemia; J43.9 Emphysema, unspecified; I25.10 Atherosclerotic heart disease of native coronary artery without angina pectoris; R22.1 Localized swelling, mass and lump, neck; I48.0 Paroxysmal atrial fibrillation; F03.90 Unspecified dementia, unspecified severity, without behavioral disturbance, psychotic disturbance, mood disturbance, and anxiety; R13.10 Dysphagia, unspecified; R79.89 Other specified abnormal findings of blood chemistry; R62.7 Adult failure to thrive; R74.8 Abnormal levels of other serum enzymes; K21.9 Gastro-esophageal reflux disease without esophagitis; E78.5 Hyperlipidemia, unspecified; E86.0 Dehydration; B96.1 Klebsiella pneumoniae [K. pneumoniae] as the cause of diseases classified elsewhere; Z66 Do not resuscitate; Z51.5 Encounter for palliative care; Z68.27 Body mass index [BMI] 27.0-27.9, adult; Z20.822 Contact with and (suspected) exposure to COVID-19; Z95.1 Presence of aortocoronary bypass graft; Z91.81 History of falling
CPT/HCPCS: J0692; J1100